=== PATIENT | female | born 1975 | race Caucasian/White ===

== ENCOUNTER 2016-09-20 15:29 | Day surgery (SDC) | payer OTHER ==
[2016-09-17 16:18] VITALS: BMI 22.9
[2016-09-20] VITALS (11 sets, daily range): BP systolic 99–125; BP diastolic 57–72; PULSE 80–97; RESP 16–24; Ht 154.9 cm; Wt 70.6 kg
[~2016-09-20] VITALS: Ht 154.9 cm; Wt 70.6 kg
[2016-09-20] MEDS ORDERED: CEFAZOLIN 2 GM/50 ML (PMX) 50 ML IVPB ONE (15:30)
[2016-09-20] MEDS ORDERED: FENTAnyl 50 MCG/ML VIAL ONE (17:01)
[2016-09-20] MEDS ORDERED: MIDAZOLAM 1 MG/ML 2 ML INJ ONE (17:01)
[2016-09-20] MEDS ORDERED: PROPOFOL 20 ML ONE (17:01)
--- NOTE | 2016-09-20 17:28 | HPN ---
Date/Time of Note Date/Time of Note DATE: 09/20/16 TIME: 17:28 Interval H&P Admission Note Pt. seen H&P reviewed: No system changes LAZARO REY DPM Sep 20, 2016 17:28
[2016-09-20] MEDS ORDERED: POLYMYXIN/BACITRACIN 1L IRRIG ONE (17:30)
[2016-09-20] MEDS ORDERED: BUPIVACAINE 0.5% (SDV) 30 ML INJ ONE (17:30)
[2016-09-20] MEDS ORDERED: CEFAZOLIN 1 GM INJ ONE (17:48)
[2016-09-20] MEDS ORDERED: ROPIVACAINE 0.5 % 30 ML VIAL ONE (18:08)
[2016-09-20] MEDS ORDERED: METOCLOPRAMIDE 10 MG INJ ONE (18:08)
[2016-09-20] MEDS ORDERED: ACETAMINOPHEN 1000MG/100ML IV 100 ML ONE (18:08)
[2016-09-20] MEDS ORDERED: ONDANSETRON 4 MG INJ ONE (18:08)
[2016-09-20] MEDS ORDERED: DEXAMETHASONE 4 MG/ML 1 ML INJ ONE (18:08)
[2016-09-20] MEDS ORDERED: KETOROLAC 30 MG INJ ONE (18:08)
--- NOTE | 2016-09-21 14:46 | RADRPT ---
PROCEDURE: XR Right Foot. CLINICAL INDICATION: Right foot pain. TECHNIQUE: Three views. Frontal, lateral, and oblique. COMPARISON: None. FINDINGS: There is no fracture or dislocation. The soft tissues are normal. Articular surfaces are intact. There is no lytic or blastic lesion. There is no radiopaque foreign body. IMPRESSION: 1. Normal images of the right foot. RPTAT: QQ .J Carlos Lynne MD, MD Date Time Electronically viewed and signed by .J Carlos Lynne MD, on 09/21/2016 14:46 .R/
== END 2016-09-20 19:55 | disposition home or self-care (01) ==
LOC: SDS 15:29
PROVIDERS: ATTEND Podiatrist Foot & Ankle Surgery
DX: S96.121D Laceration of muscle and tendon of long extensor muscle of toe at ankle and foot level, right foot, subsequent encounter (principal); X58.XXXD Exposure to other specified factors, subsequent encounter; Y92.89 Other specified places as the place of occurrence of the external cause
CPT/HCPCS: 28208; 73630; 88305; J0131; J0690; J1100; J1885; J2250; J2405; J2765; J2795; J3010; Z7512; Z7610

== ENCOUNTER 2017-03-16 20:49 | Emergency (ER) | payer OTHER ==
[~2017-03-16] VITALS: Ht 154.9 cm; Wt 71.0 kg
[2017-03-16 20:52] VITALS: Ht 154.9 cm; Wt 71.0 kg
[2017-03-16] MEDS ORDERED: ACETAMINOPHEN 500 MG TAB PO STA (23:50)
[2017-03-16] MEDS ORDERED: ONDANSETRON 4 MG INJ IV STA (23:50)
[2017-03-16] MEDS ORDERED: SOD CHLORIDE 0.9% 1,000 ML IV STA (23:50)
--- NOTE | 2017-03-16 23:58 | ERD ---
ER Documentation Chief Complaint Date/Time DATE: 03/16/17 TIME: 23:54 Chief Complaint BIB SELF, CC: WEAKNESS X 4 DAYS, +FEVER HPI This is a 42-year-old female who presents to the emergency department today with her daughter complaining of feeling weak for the past 6 days. States that she also has some pressure in her lower abdomen that goes around to her back. States that she does have some pain with urination. Denies any cough. States that she took 3 Advil at 7 PM. States she has nausea but no vomiting. ROS All systems reviewed and are negative except as per history of present illness. Medications Home Meds Active Scripts Acetaminophen* (Tylophen*) 500 Mg Capsule, 1 CAP PO Q6H Y for PAIN AND OR ELEVATED TEMP, #30 CAP Prov:KRISTA DEJESUS PA-C 03/17/17 Ondansetron Hcl* (Zofran*) 4 Mg Tablet, 4 MG PO Q6H for NAUSEA AND/OR VOMITING, #30 TAB Prov:KRISTA DEJESUS PA-C 03/17/17 Naproxen* (Naprosyn*) 500 Mg Tablet, 500 MG PO BID Y for PAIN AND/OR INFLAMMATION, #30 TAB Prov:KRISTA DEJESUS PA-C 03/17/17 Allergies Allergies: Coded Allergies: No Known Allergies (Verified Allergy, Unknown, 09/17/16) PMhx/Soc History of Surgery: Yes (C-SEC X3,TUBAL LIGATION) Anesthesia Reaction: No Hx Neurological Disorder: No Hx Respiratory Disorders: No Hx Cardiac Disorders: No Hx Psychiatric Problems: No Hx Miscellaneous Medical Probl: No Hx Alcohol Use: No Hx Substance Use: No Hx Tobacco Use: No Physical Exam Vitals Vital Signs Date Time Temp Pulse Resp B/P Pulse Ox O2 Delivery O2 Flow Rate FiO2 03/17/17 02:59 98.8 81 18 114/70 97 Room Air 03/16/17 20:52 101.7 101 18 133/69 100 Physical Exam Const: NAD Head: Atraumatic Eyes: Normal Conjunctiva ENT: TMs normal. Nose no drainage. Throat erythema no exudate Neck: Full range of motion..~ No meningismus. Resp: Clear to auscultation bilaterally no absent breath sounds. No wheezing. Cardio: Regular rate and rhythm, no murmurs Abd: Soft, diffuse lower abdominal pain non distended. Normal bowel sounds. No RUQ pain Skin: No petechiae or rashes Back: No midline or flank tenderness Ext: No cyanosis, or edema Neur: Awake and alert Psych: Normal Mood and Affect Result Diagram: 03/17/17 0015 03/17/17 0015 Results 24 hrs Laboratory Tests Test 03/17/17 00:15 White Blood Count 9.710^3/ul Red Blood Count 4.7210^6/ul Hemoglobin 14.0g/dl Hematocrit 42.4% Mean Corpuscular Volume 89.8fl Mean Corpuscular Hemoglobin 29.7pg Mean Corpuscular Hemoglobin Concent 33.0g/dl Red Cell Distribution Width 12.5% Platelet Count 43701^3/UL Mean Platelet Volume 9.7fl Neutrophils % 73.6% Lymphocytes % 19.8% Monocytes % 5.4% Eosinophils % 0.7% Basophils % 0.2% Nucleated Red Blood Cells % 0.0/100WBC Neutrophils # (Manual) 7.110^3/ul Lymphocytes # 1.910^3/ul Monocytes # 0.510^3/ul Eosinophils # 0.110^3/ul Basophils # 0.010^3/ul Nucleated Red Blood Cells # 0.010^3/ul Urine Color YELLOW Urine Clarity SLIGHTLY CLOUDY Urine pH 5.0 Urine Specific [place] 1.013 Urine Ketones NEGATIVEmg/dL Urine Nitrite NEGATIVEmg/dL Urine Bilirubin NEGATIVEmg/dL Urine Urobilinogen NEGATIVEmg/dL Urine Leukocyte Esterase NEGATIVELeu/ul Urine Microscopic RBC 1/HPF Urine Microscopic WBC 2/HPF Urine Squamous Epithelial Cells FEW/HPF Urine Bacteria FEW/HPF Urine Mucus FEW/HPF Urine Hemoglobin 1+mg/dL Urine Glucose NEGATIVEmg/dL Urine Total Protein 1+mg/dl Sodium Level 139mmol/L Potassium Level 4.5mmol/L Chloride Level 104mmol/L Carbon Dioxide Level 27mmol/L Anion Gap 13 Blood Urea Nitrogen 10mg/dl Creatinine 0.67mg/dl Glucose Level 107mg/dl Calcium Level 9.7mg/dl Total Bilirubin 0.5mg/dl Direct Bilirubin 0.00mg/dl Indirect Bilirubin 0.5mg/dl Aspartate Amino Transf (AST/SGOT) 50IU/L Alanine Aminotransferase (ALT/SGPT) 59IU/L Alkaline Phosphatase 58IU/L Total Protein 8.2g/dl Albumin 4.6g/dl Globulin 3.60g/dl Albumin/Globulin Ratio 1.27 Lipase 130U/L Current Medications Medications (Trade) Dose Ordered Sig/Matthew Route PRN Reason Start Time Stop Time Status Last Admin Dose Admin Sodium Chloride (NS) 1,000 ml @ 1,000 mls/hr Q1H STAT IV 03/16/17 23:50 03/17/17 00:49 DC 03/17/17 00:24 Ondansetron HCl (Zofran Inj) 4 mg ONCE STAT IV 03/16/17 23:50 03/16/17 23:52 DC 03/17/17 00:23 Acetaminophen (Tylenol Tab) 500 mg ONCE STAT PO 03/16/17 23:50 03/16/17 23:52 DC 03/17/17 00:23 Ketorolac Tromethamine (Toradol) 30 mg ONCE STAT IM 03/17/17 01:06 03/17/17 01:07 Cancel Ketorolac Tromethamine (Toradol) 30 mg ONCE STAT IV 03/17/17 01:14 03/17/17 01:16 DC 03/17/17 01:16 DIAGNOSTIC IMAGING REPORT Patient: OLIVIA HURT : 1975 Age: 42 Sex: F MR #: [id number] DOS: 03/16/17 2350 Ordering MD: KRISTA DEJESUS PA-C Location: E Room/Bed: PROCEDURE: CT ABDOMEN AND PELVIS WITHOUT CONTRAST: CLINICAL INDICATION: 42 years of age, female , abdominal pain. COMPARISON: None available. TECHNIQUE: CT of the abdomen and pelvis was performed without intravenous contrast. Oral contrast was not administered prior to the examination. Coronal and sagittal reformatted images were obtained from the axial source images. Images were reviewed on a high-resolution PACS workstation. Dose information: Based on a 32 cm phantom, the estimated radiation dose ( CTDIvol mGy) for each series in this exam is 15.2. The estimated cumulative dose (DLP mGy-cm) is 826. One or more of the following dose reduction techniques were used: - Automated exposure control. - Adjustment of the mA and/or kV according to patient size. - Use of iterative reconstruction technique. FINDINGS: In the absence of intravenous contrast, the study constitutes a limited assessment of the solid organs, bowel and vessels. LUNG BASES: Normal noncontrast appearance. ABDOMEN/PELVIS: Liver: Mild diffuse hepatic steatosis. Gallbladder: Normal noncontrast appearance. Bile ducts: No intrahepatic or extrahepatic biliary duct dilatation. Spleen: Normal noncontrast appearance. Pancreas: Normal noncontrast appearance. Adrenal glands: Normal noncontrast appearance. Kidneys and ureters: Normal noncontrast appearance. Negative for urinary calculi or hydronephrosis Aorta and IVC: Normal noncontrast appearance. Lymph nodes: Normal noncontrast appearance. Gastrointestinal tract: Normal noncontrast appearance. Appendix: Normal Bladder: Normal noncontrast appearance. Pelvic Organs: The uterus and adnexa are unremarkable. Peritoneal cavity: No free fluid or free intraperitoneal air. Abdominal wall: Small fat containing umbilical hernia. BONES: Musculoskeletal: Mild bilateral sacroiliac joint osteoarthritis. No suspicious bone lesions. IMPRESSION: Mild diffuse hepatic steatosis. This is a potential cause for right upper quadrant pain. RPTAT: HCTS Physician Anna Date Time Electronically viewed and signed by Nereyda Yip Physician on 03/17/2017 01: 14 CS/ CC: KRISTA DEJESUS PA-C RUN DATE: 03/17/17 [facility] PAGE 1 RUN TIME: [id number] [place] [id number] Pancho Slaughter M.D. [employer] DANETTE#: [id number] Name: OLIVIA HURT Age/Sex: 42/F Attend Dr: KRISTIN SUSSY Acct: [id number] MR# : [id number] : 1975 Location: [facility] Admit: 03/16/17 Specimen: [id number] Status: Complete Silas: 03/17/17 Rcvd: 03/17-151 Source: [facility] Sp Descrip: Procedure Result Microbiology INFLUENZA A & B BY EIA Final INFLU A&B BY EIA INFLUENZA A NEGATIVE (Ref Range Neg) INFLUENZA B NEGATIVE (Ref Range Neg) ................................................................................ ............ Flags: Critical Hi = *H Critical Lo = *L Microbiology Abnormal = * Abnormal Hi = H Abnormal Lo = L Blood Bank Abnormal = * Susceptability Flags: S = Sensitive R = Resistant I = Intermediate END OF REPORT Procedures/MDM This is a 42-year-old female presents emergency department today for feeling weak for the past 6 days and fever. On physical exam patient had diffuse lower abdominal pain. She was febrile at 101.7 and tachycardic. Oxygen saturation 100%. She denies any cough and I do not feel that she requires a chest x-ray at this time. Low suspicion for pneumonia, PE, abscess, pleural effusion. Plan laboratory work as well as a CT abdomen pelvis noncontrast. Laboratory workup no elevated white blood cell count. She is not anemic. Platelets are within normal limits. electrolites are within normal limits. Liver enzymes are very mildly elevated. Lipase within normal limits. UA negative for infection. urine test is negative CT abdomen pelvis noncontrast shows mild diffuse hepatic steatosis. Gallbladder is unremarkable. Appendix is normal. GI tract is normal. There is no free fluid or free air. Uterus and adnexa are unremarkable. Influenza a and B is negative Symptoms at this time is consistent with febrile illness etiology possibly viral related. Patient was given IV fluids, Zofran, Tylenol. Patient still continued to complain of pain and was therefore given Toradol and reported feeling much better. Fever improved to 98.8 and patient was no longer tachycardic. Not feel the patient required a chest x-ray she had no URI symptoms or cough. Low suspicion for pneumonia, PE, abscess, pleural effusion. Patient was given a prescription for Naprosyn, Tylenol home. At this time the patient is stable for discharge and outpatient management. Patient should follow up with their PCP in the next 1-2 days. They may return to the emergency department sooner for any persistent or worsening of symptoms. Patient understood and agreed with the plan. Discussed the patient with Dr. Richmond and he is in agreement with the plan. Departure Diagnosis: Primary Impression: Fever Fever type: unspecified Qualified Code: R50.9 - Fever, unspecified fever cause Condition: KRISTA Espinoza PA-C Mar 16, 2017 23:58
[2017-03-17 00:36] LABS: BASOPHILS % 0.2 % (0.0-2.0); EOSINOPHILS # 0.1 10^3/ul (0.0-0.5); EOSINOPHILS % 0.7 % (0.0-7.0); HEMATOCRIT 42.4 % (37.0-47.0); LYMPHOCYTES # 1.9 10^3/ul (0.8-2.9); LYMPHOCYTES % 19.8 % (15.0-51.0); MEAN CORPUSCULAR HEMOGLOBIN 29.7 pg (29.0-33.0); MEAN CORPUSCULAR VOLUME 89.8 fl (82.0-101.0); MEAN PLATELET VOLUME 9.7 fl (7.4-10.4); MONOCYTE # 0.5 10^3/ul (0.3-0.9); MONOCYTES % 5.4 % (0.0-11.0); NEUTROPHILS % 73.6 % (39.0-77.0); PLATELET COUNT 276 10^3/UL (140-415); RED BLOOD COUNT 4.72 10^6/ul (4.20-5.40); RED CELL DISTRIBUTION WIDTH 12.5 % (11.5-14.5); WHITE BLOOD COUNT 9.7 10^3/ul (4.8-10.8)
[2017-03-17 00:57] LABS: ALBUMIN 4.6 g/dl (3.3-4.9); ALBUMIN/GLOBULIN RATIO 1.27; BILIRUBIN,INDIRECT 0.5 mg/dl (0-1.1); BILIRUBIN,TOTAL 0.5 mg/dl (0.2-1.3); CALCIUM 9.7 mg/dl (8.4-10.2); CREATININE 0.67 mg/dl (0.44-1.00); POTASSIUM 4.5 mmol/L (3.5-5.1); TOTAL PROTEIN 8.2 g/dl (6.1-8.1)
[2017-03-17] MEDS ORDERED: KETOROLAC 30 MG INJ IM STA (01:06)
[2017-03-17 01:07] LABS: ADD UMIC YES; UR ASCORBIC ACID NEGATIVE (NEGATIVE); UR BACTERIA FEW /HPF (NONE SEEN); UR BILIRUBIN (Dip) NEGATIVE (NEGATIVE); UR BLOOD (Dip) 1+ mg/dL (NEGATIVE); UR CLARITY SLIGHTLY CLOUDY (CLEAR); UR COLOR YELLOW (YELLOW); UR GLUCOSE (Dip) NEGATIVE (NEGATIVE); UR KETONES (Dip) NEGATIVE (NEGATIVE); UR LEUKOCYTE ESTERASE (Dip) NEGATIVE Leu/ul (NEGATIVE); UR MUCUS FEW /HPF (NONE SEEN); UR NITRITE (Dip) NEGATIVE (NEGATIVE); UR RBC 1 /HPF (0-5); UR SPECIFIC GRAVITY (Dip) 1.013 (1.003-1.030); UR SQUAMOUS EPITHELIAL CELL FEW /HPF (FEW); UR TOTAL PROTEIN (Dip) 1+ mg/dl (NEGATIVE); UR UROBILINOGEN (Dip) NEGATIVE (NEGATIVE)
[2017-03-17] MEDS ORDERED: KETOROLAC 30 MG INJ IV STA (01:14)
--- NOTE | 2017-03-17 01:14 | RADRPT ---
PROCEDURE: CT ABDOMEN AND PELVIS WITHOUT CONTRAST: CLINICAL INDICATION: 42 years of age, female , abdominal pain. COMPARISON: None available. TECHNIQUE: CT of the abdomen and pelvis was performed without intravenous contrast. Oral contrast wa s not administered prior to the examination. Coronal and sagittal reformatted images were obtained from the axial source images. Images were revi ewed on a high-resolution PACS workstation. Dose information: Based on a 32 cm phantom, the estimated radiation dose (CTDIvol mGy) for each seri es in this exam is 15.2. The estimated cumulative dose (DLP mGy-cm) is 826. One or more of the following dose reduction techniques were used: - Automated exposure control. - Adjustment of the mA and/or kV according to patient size. - Use of iterative reconstruction technique. FINDINGS: In the absence of intravenous contrast, the study constitutes a limited assessment of the solid orga ns, bowel and vessels. LUNG BASES: Normal noncontrast appearance. ABDOMEN/PELVIS: Liver: Mild diffuse hepatic steatosis. Gallbladder: Normal noncontrast appearance. Bile ducts: No intrahepatic or extrahepatic biliary duct dilatation. Spleen: Normal noncontrast appearance. Pancreas: Normal noncontrast appearance. Adrenal glands: Normal noncontrast appearance. Kidneys and ureters: Normal noncontrast appearance. Negative for urinary calculi or hydronephrosis Aorta and IVC: Normal noncontrast appearance. Lymph nodes: Normal noncontrast appearance. Gastrointestinal tract: Normal noncontrast appearance. Appendix: Normal Bladder: Normal noncontrast appearance. Pelvic Organs: The uterus and adnexa are unremarkable. Peritoneal cavity: No free fluid or free intraperitoneal air. Abdominal wall: Small fat containing umbilical hernia. BONES: Musculoskeletal: Mild bilateral sacroiliac joint osteoarthritis. No suspicious bone lesions. IMPRESSION: Mild diffuse hepatic steatosis. This is a potential cause for right upper quadrant pain. RPTAT: HCTS Physician Anna Date Time Electronically viewed and signed by Physician Anna on 03/17/2017 01:14 CS/
[2017-03-17 02:59] VITALS: BP 114/70; PULSE 81; RESP 18; TEMP 98.8
[2017-03-17] MEDS ORDERED: ACET500C5 PO (03:04)
[2017-03-17] MEDS ORDERED: ONDA4TAB8 PO (03:04)
[2017-03-17] MEDS ORDERED: NAPR-260 PO (03:04)
== END 2017-03-17 03:12 | disposition home or self-care (01) ==
LOC: FTE 20:49
DX: R50.9 Fever, unspecified (principal); R11.0 Nausea
CPT/HCPCS: 36415; 74176; 80053; 81001; 83690; 85025; 87400; 96374; 96375; J2405; J7030; Z7502; Z7610; J1885